=== PATIENT | female | born 2000 | race Caucasian/White ===

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

== ENCOUNTER 2021-01-03 11:21 | Emergency (ER) | payer MEDICAID ==
[~2021-01-03] VITALS: Ht 154.9 cm; Wt 68.2 kg
[~2021-01-03 11:21] MED LIST changes: +DIFLUCAN150 MG PO; +MACROBID100 MG PO
[2021-01-03 11:30] VITALS: BP 111/66; Ht 154.9 cm; Wt 68.2 kg
[2021-01-03 12:30] LABS: BASOPHILS 0.5 % (0-2); EOSINOPHILS 0.8 % (0-7); HEMATOCRIT 36.2 % (36.0-48.0); HEMOGLOBIN 12.5 g/dL (12-16); LYMPHOCYTES 20.8 % (15-50); MCH 29.7 pg (26.0-34.0); MCHC 34.4 g/dL (31.0-37.0); MCV 86.3 fL (80.0-100.0); MEAN PLATELET VOLUME 7.9 fL (7.4-10.4); MONOCYTES 5.1 % (2-11); NEUTROPHILS 72.8 % (40-80); RDW 13.2 % (11.5-14.5); WBC 10.2 10x3/uL (4.8-10.8)
[2021-01-03 12:31] LABS: PLATELET COUNT 200 10x3/uL (130-400)
[2021-01-03 12:34] LABS: BILIRUBIN NEGATIVE (NEGATIVE); KETONE NEGATIVE (NEGATIVE); NITRITE NEGATIVE (NEGATIVE); UROBILINOGEN NORMAL mg/dL (< 2)
[2021-01-03 12:37] LABS: BACTERIA MODERATE HPF (NONE SEEN); SQUAMOUS EPITHELIAL 0-5 HPF (0-4); WHITE CELLS - URINE 0-5 HPF (0-4)
[2021-01-03 12:38] LABS: AMORPHOUS SEDIMENT >1+ LPF (NONE SEEN)
[2021-01-03 12:39] LABS: CALC OSMOLALITY 273 mosm/kg (275-300); CALCIUM 8.2 mg/dL (8.5-10.1); CARBON DIOXIDE 27.8 mmol/L (21.0-32.0); CHLORIDE - SERUM 107 mmol/L (98-107); CREATININE - SERUM 0.7 mg/dL (0.6-1.3); GLUCOSE 83 mg/dL (74-106); POTASSIUM - SERUM 3.8 mmol/L (3.5-5.1); SODIUM 138 mmol/L (136-145); UREA NITROGEN 11 mg/dL (7-18); eGFR NON AFRICAN AMERICAN > 90 mL/min (90-120)
[2021-01-03 13:08] LABS: ALBUMIN 2.8 g/dL (3.4-5.0); ALKALINE PHOSPHATASE 44 U/L (30-120); ALT (SGPT) 15 U/L (10-68); BILIRUBIN - TOTAL 0.17 mg/dL (0.2-1.3); HCG - QUANTITATIVE (MATERNAL) 5308 mIU/mL; PROTEIN - SERUM 6.3 g/dL (6.4-8.2)
[2021-01-03] MEDS ORDERED: FLAGYL500 MG PO (15:25)
== END 2021-01-03 15:52 | disposition home or self-care (01) ==
LOC: D.ER 11:21
PROVIDERS: Family Medicine
DX: O26.892 Other specified pregnancy related conditions, second trimester (principal); Z3A.16 16 weeks gestation of pregnancy; R10.32 Left lower quadrant pain; R10.9 Unspecified abdominal pain; N76.0 Acute vaginitis